=== PATIENT | male | born 1935 | race Caucasian/White ===

== ENCOUNTER 2019-10-16 13:54 | Outpatient (CLI) | payer OTHER ==
[~2019-10-16 13:54] MED LIST: COZAAR25 MG; HYDROCHLOROTH12.5 M1; NORVASC5 MG; TOBREX5 ML OP
== END 2019-10-16 13:56 | disposition home or self-care (01) ==
LOC: RAD 13:54
PROVIDERS: ATTEND Ophthalmology
DX: Z01.811 Encounter for preprocedural respiratory examination (principal)

== ENCOUNTER 2020-09-04 07:24 | Emergency (ER) | payer OTHER ==
[~2020-09-04] VITALS: Ht 165.1 cm; Wt 68.0 kg
[2020-09-04] MEDS ORDERED: NORVASC5 MG (07:52)
[2020-09-04] MEDS ORDERED: ATACAND32 MG (08:05)
== END 2020-09-04 11:08 | disposition home or self-care (01) ==
LOC: ER 07:24
DX: G89.11 Acute pain due to trauma (principal); M25.552 Pain in left hip; M54.5 Low back pain; M53.3 Sacrococcygeal disorders, not elsewhere classified

== ENCOUNTER 2021-03-22 14:36 | Inpatient (IN) | payer OTHER ==
[~2021-03-22] VITALS: Ht 167.6 cm; Wt 66.2 kg
[~2021-03-22 14:36] MED LIST changes: +ATACAND32 MG
--- NOTE | 2021-03-22 14:47 | NUR ---
PACIENTE ALERTA Y ORIENTADO X3 QUIEN REFIERE SENTIRSE CON [place] SECA DESDE EL SABADO Y ESCALOFRIOS. SE MONITOREAN S/V Y AL MOMENTO PRESENTA FIEBRE. SE UBICA PACIENTE EN FAST TRACK.
--- NOTE | 2021-03-22 15:45 | NUR ---
SE REALIZAN ORDENES MEDICAS EN ARTEAGA TOTALIDAD. SE ORIENTA A PACIENTE SOBRE LAS MISMAS.
--- NOTE | 2021-03-23 05:53 | NUR ---
SE RECIBE PTE ALERTA Y ORIENTADO X3 EN ROLO. PTE CON H/L COLOCADO Y IV FLUIDS. PTE CONSULTADO CON MEDICINA INTERNA. PTE SE CONTINUA MONITORIANDO POR CAMBIOS.
--- NOTE | 2021-03-23 07:04 | NUR ---
SE RECIBE PACIENTE DE TURNO ANTERIOR ALERTA Y ORIENTADA X3 CON BARANDAS ELEVADAS. PACIENTE CON IV PATENTE Y BRIAN DE EDEMA. REFIERE NO TENER DOLOR AL MOMENTO. SE ESPERA POR CONSULTA CON MEDICINA INTERNA. SE MANTIENE BAJO OBSERVACION.
== END 2021-03-30 17:04 | disposition home or self-care (01) | DRG 177 ==
LOC: ER 14:36 → MEDJ 03-23 16:42
PROVIDERS: ADMIT Specialist; ATTEND Specialist
PROC: 4A12X4Z Monitoring of Cardiac Electrical Activity, External Approach (ICD-10-PCS; 2021-03-23)
PROC: BW24ZZZ Computerized Tomography (CT Scan) of Chest and Abdomen (ICD-10-PCS; 2021-03-24)
PROC: XW033E5 Introduction of Remdesivir Anti-infective into Peripheral Vein, Percutaneous Approach, New Technology Group 5 (ICD-10-PCS; principal; 2021-03-26)
DX: U07.1 COVID-19 (principal); J12.82 Pneumonia due to coronavirus disease 2019; E87.1 Hypo-osmolality and hyponatremia; E86.0 Dehydration; R09.02 Hypoxemia; I10 Essential (primary) hypertension

== ENCOUNTER 2021-08-30 10:49 | Outpatient (CLI) | payer OTHER | END 2021-08-30 10:55 | disposition home or self-care (01) | LOC: EKG 10:49 | PROVIDERS: ATTEND Specialist | DX: I47.1 Supraventricular tachycardia (principal) ==

== ENCOUNTER 2022-03-15 16:07 | Emergency (ER) | payer OTHER ==
[~2022-03-15] VITALS: Ht 165.1 cm; Wt 67.1 kg
[2022-03-15] MEDS ORDERED: TOPROL XL25 M1 PO (16:39)
== END 2022-03-15 19:56 | disposition home or self-care (01) ==
LOC: ER 16:07
DX: U07.1 COVID-19 (principal); R68.83 Chills (without fever); I10 Essential (primary) hypertension; Z88.2 Allergy status to sulfonamides

== ENCOUNTER 2022-06-13 12:08 | Outpatient (CLI) | payer OTHER ==
[~2022-06-13 12:08] MED LIST changes: +TOPROL XL25 M1 PO
== END 2022-06-13 12:13 | disposition home or self-care (01) ==
LOC: RAD 12:08
PROVIDERS: ATTEND Specialist
DX: J45.998 Other asthma (principal)